=== PATIENT | male | born 1940 | race African-American/Black ===

== ENCOUNTER 2018-01-18 04:16 | Emergency (ER) | payer OTHER, BC ==
[~2018-01-18] VITALS: Ht 180.3 cm; Wt 83.9 kg
[~2018-01-18 04:16] MED LIST: ASPIRIN81 M2; BACTRIM DS TAB1 EACH PO; CIPRO500 M1 PO; CIPROFLOXACIN500 M1 PO; CIPROFLOXACIN500 M3 PO; HYDROCODONE-AP1 EAC6 PO; IRON159 MG PO; IRON325 PO; OXYBUTYNIN 5 MG5 M1; PRAVACHOL 20 MG20 M1 PO; PRAVACHOL40 MG PO; TAMSULOSIN HCL0.4 M1; TYLENOL325 MG PO
[2018-01-18 06:45] VITALS: BP 154/82
== END 2018-01-18 06:46 | disposition home or self-care (01) ==
LOC: ER 04:16
DX: R31.0 Gross hematuria (principal); R33.9 Retention of urine, unspecified; Z85.46 Personal history of malignant neoplasm of prostate; R30.0 Dysuria; Z90.89 Acquired absence of other organs

== ENCOUNTER 2019-08-31 02:37 | Emergency (ER) | payer OTHER, BC ==
[~2019-08-31] VITALS: Ht 180.3 cm; Wt 81.7 kg
[2019-08-31 03:49] LABS: CALCIUM 8.7 mg/dL (8.5-10.1); CREATININE 0.8 mg/dL (0.7-1.3); POTASSIUM 3.5 mmol/L (3.5-5.1)
[2019-08-31 03:59] LABS: URINE BILIRUBIN 2+ (Negative); URINE BLOOD 3+ (Negative); URINE CLARITY CLOUDY; URINE COLOR RED; URINE GLUCOSE-RANDOM* NEGATIVE (Negative); URINE KETONES TRACE (Negative); URINE PROTEIN (DIPSTICK) 3+ (Negative); URINE SPECIFIC GRAVITY 1.015 (1.005-1.035)
[2019-08-31 04:04] LABS: URINE LEUKOCYTES-REFLEX 2+ (Negative); URINE NITRITE-REFLEX POSITIVE (Negative)
[2019-08-31 04:23] LABS: BACTERIA-REFLEX >30 Many /HPF (None Seen); CASTS None Seen /LPF (None Seen); CRYSTALS None Seen /LPF (None Seen); MUCUS 0-3 Light strn/LPF (None Seen); SQUAMOUS 4-10 Moderate /LPF (0-3); URINE RBC >20 Many /HPF (0-2); WBC CLUMPS Moderate (None Seen)
[2019-08-31] MEDS ORDERED: CIPROFLOXACIN500 M1 PO (04:30)
[2019-08-31 05:22] VITALS: BP 136/84
== END 2019-08-31 05:00 | disposition home or self-care (01) ==
LOC: ER 02:37
PROVIDERS: Emergency Medicine
DX: N30.01 Acute cystitis with hematuria (principal); Z90.49 Acquired absence of other specified parts of digestive tract; Z85.46 Personal history of malignant neoplasm of prostate; Z87.440 Personal history of urinary (tract) infections